=== PATIENT | female | born 1970 | race Caucasian/White ===

== ENCOUNTER → 2020-08-01 | Outpatient (CLI) | payer OTHER ==
[~2020-08-01] MED LIST: CETI10TA74 PO
== END ==
LOC: LAB 08:41
PROVIDERS: ATTEND Nurse Anesthetist, Certified Registered
DX: Z01.812 Encounter for preprocedural laboratory examination (principal); Z20.822 Contact with and (suspected) exposure to COVID-19
CPT/HCPCS: U0003; U0005

== ENCOUNTER → 2020-08-05 | Day surgery (SDC) | payer OTHER ==
[~2020-08-05] MED LIST changes: +ALBU2.5V8 INH; +IPRATRPIUM/ALBUTEROL 0.5/2.5MG 3 ML NEBU. NEB PRN; +IV RINGERS SOLUTION,LACTATED 1,000 ML IV SCH; +LIDOCAINE 2% PF 5 ML VIAL. ONE; +MIDAZOLAM HCL PF 2 MG/2 ML VIAL. IV ONE; +ONDANSETRON PF 4 MG/2 ML VIAL. IV PRN; +ONDANSETRON PF 4 MG/2 ML VIAL. ONE; +PROPOFOL 10,000 MCG/ML (20ML) VIAL IV ONE
[2020-08-05 09:02] VITALS: BP 106/62
== END | disposition home or self-care (01) ==
LOC: SURG 07:10
PROVIDERS: ATTEND Emergency Medicine
DX: Z12.11 Encounter for screening for malignant neoplasm of colon (principal); K57.30 Diverticulosis of large intestine without perforation or abscess without bleeding; Z79.899 Other long term (current) drug therapy; Z72.89 Other problems related to lifestyle
CPT/HCPCS: 45378; J2001; J2405; J2704; J7120

== ENCOUNTER → 2021-06-25 | Outpatient (CLI) | payer OTHER ==
[2020-08-05 09:02] VITALS: BP 106/62
[~2021-06-25] MED LIST changes: -IPRATRPIUM/ALBUTEROL 0.5/2.5MG 3 ML NEBU. NEB PRN; -IV RINGERS SOLUTION,LACTATED 1,000 ML IV SCH; -LIDOCAINE 2% PF 5 ML VIAL. ONE; -MIDAZOLAM HCL PF 2 MG/2 ML VIAL. IV ONE; -ONDANSETRON PF 4 MG/2 ML VIAL. IV PRN; -ONDANSETRON PF 4 MG/2 ML VIAL. ONE; -PROPOFOL 10,000 MCG/ML (20ML) VIAL IV ONE
--- NOTE | 2021-06-25 09:37 | RAD ---
US TRANSVAGINAL Clinical Indication: Reason: RLQ PAIN, HX OF FIBROIDS / Spl. Instructions: / History: Comparison: None. TECHNIQUE: Real-time ultrasound imaging of the pelvis using transvaginal window is performed. Findings: There is a 5 mm nabothian cyst. The endometrial stripe is normal measuring 4 mm. Anteverted uterus me asures 8.1 x 5 x 4.2 cm. There is an intramural fibroid of the posterior uterus measuring 1.2 x 1.2 x 1.3 cm. The ovaries are similar in size and demonstrate normal blood flow. No evidence of adnexal mass. No pe lvic free fluid is seen. IMPRESSION: 1. There is a small intramural fibroid of the posterior uterus. 2. Nabothian cyst. 3. Normal blood flow in the ovaries. Electronically signed by: Elijah Jackson MD (06/25/2021 9:35 AM) [id number]
== END ==
LOC: US 07:46
PROVIDERS: ATTEND Clinical Nurse Specialist Family Health
DX: D25.1 Intramural leiomyoma of uterus (principal); N85.4 Malposition of uterus
CPT/HCPCS: 76830